=== PATIENT | female | born 1950 | race Caucasian/White ===

== ENCOUNTER 2017-08-16 04:45 | Emergency (ER) | payer MEDICARE, OTHER ==
[~2017-08-16] VITALS: Ht 172.7 cm; Wt 88.5 kg
[~2017-08-16 04:45] MED LIST: CARB200 PO; CIPR500 PO; CYCL10; CYCL10 PO; DOCU100 PO; ERGO50000 PO; ESOM20 PO; ESTR1; FAMO20; GABA300 PO; HYDMOR2 PO; HYOS.125 PO; KETO10 PO; LAMOTRIGINE300 MG PO; LEVSOD75 PO; METH10 PO; METO10; METO10 PO; MORP15ER PO; MULVITA PO; OXYC20L PO; OXYC5 PO; OXYC80ER; OXYCODONE 20 MG; PHENA200 PO; POLY17UD PO; PROM25 PO; RXPHEN200 PO; RXPROM25S PR; SENN187 PO; SUCR1 PO; TESTOSTERONE 2%; Tizanidine HCl2 MG; Valium5 MG PO
[2017-08-16] MEDS ORDERED: ESOM20 PO (06:04)
[2017-08-16] MEDS ORDERED: GABA400 PO (06:05)
[2017-08-16] MEDS ORDERED: TIROSINT100 MCG PO (06:06)
[2017-08-16] MEDS ORDERED: TEMA15 PO (06:07)
== END 2017-08-16 06:48 | disposition home or self-care (01) ==
LOC: ER 04:45
DX: S52.611A Displaced fracture of right ulna styloid process, initial encounter for closed fracture (principal); W17.89XA Other fall from one level to another, initial encounter; Z88.8 Allergy status to other drugs, medicaments and biological substances; Z79.899 Other long term (current) drug therapy; Z79.891 Long term (current) use of opiate analgesic
CPT/HCPCS: 29105; 73110; 96372; 99283; J1885

== ENCOUNTER 2017-11-18 06:21 | Emergency (ER) | payer MEDICARE, OTHER ==
[~2017-11-18] VITALS: Ht 172.7 cm; Wt 92.5 kg
[~2017-11-18 06:21] MED LIST changes: +GABA400 PO; +TEMA15 PO; +TIROSINT100 MCG PO
[2017-11-18 08:11] LABS: BASOPHILS ABSOLUTE AUTO 0.04 K/mm3 (0.00-0.23); BASOPHILS PERCENT AUTO 0 % (0-2); EOSINOPHILS ABSOLUTE AUTO 0.15 K/mm3 (0.00-0.68); EOSINOPHILS PERCENT AUTO 2 % (0-6); Hematocrit 33.2 % (33.0-51.0); Hemoglobin 10.4 g/dL (11.5-16.0); IMMATURE GRAN ABSOLUTE AUTO 0.03 K/mm3 (0.00-0.10); IMMATURE GRAN PERCENT AUTO 0 % (0-1); LYMPHOCYTES ABSOLUTE AUTO 1.19 K/mm3 (0.84-5.20); LYMPHOCYTES PERCENT AUTO 12 % (21-46); MONOCYTES ABSOLUTE AUTO 0.72 K/mm3 (0.16-1.47); MONOCYTES PERCENT AUTO 8 % (4-13); Mean Corpuscular HGB Conc 31.3 g/dL (31.5-36.5); Mean Corpuscular Volume 90 fL (80-100); NEUTROPHILS ABSOLUTE AUTO 7.47 K/mm3 (1.96-9.15); NEUTROPHILS PERCENT AUTO 78 % (41-73); Platelet Count 237 K/mm3 (150-400); RDW Coefficient Variation 13.6 % (11.7-14.2); RDW Standard Deviation 44.9 fL (35.1-46.3); Red Blood Cell Count 3.71 M/mm3 (3.80-5.20)
[2017-11-18 08:27] LABS: International Normalized Ratio 1.04; Prothrombin Time Results 10.7 Sec (9.7-11.5)
[2017-11-18 08:30] LABS: Anion Gap 5 mmol/L (6-16); Blood Urea Nitrogen 21 mg/dL (8-24); CO2, Blood 30 mmol/L (21-32); Calcium, Blood 8.1 mg/dL (8.5-10.1); Chloride, Blood 108 mmol/L (98-108); Glomerular Filtration Rate >60 (60-); Glucose, Blood 114 mg/dL (70-99); Potassium, Blood 3.8 mmol/L (3.5-5.5); Sodium, Blood 143 mmol/L (136-145)
== END 2017-11-18 10:20 | disposition short-term general hospital (02) ==
LOC: ER 06:21
PROVIDERS: Emergency Medicine
DX: S82.141A Displaced bicondylar fracture of right tibia, initial encounter for closed fracture (principal); S82.64XA Nondisplaced fracture of lateral malleolus of right fibula, initial encounter for closed fracture; Z91.048 Other nonmedicinal substance allergy status; Z88.8 Allergy status to other drugs, medicaments and biological substances; Z79.899 Other long term (current) drug therapy; W01.0XXA Fall on same level from slipping, tripping and stumbling without subsequent striking against object, initial encounter
CPT/HCPCS: 29505; 73590; 73610; 73700; 76377; 80048; 85025; 85610; 93005; 93010; 96361; 96374; 96375; 96376; 99285; J1885; J2405; J3010; J7030

== ENCOUNTER → 2018-01-29 | Outpatient (CLI) | payer MEDICARE, OTHER ==
[2018-01-31 14:56] LABS: Stool Occult Bld Immuno 1 Negative (NEGATIVE)
== END | disposition home or self-care (01) ==
LOC: LAB EV 14:30
PROVIDERS: Internal Medicine
DX: D50.9 Iron deficiency anemia, unspecified (principal)
CPT/HCPCS: 82274

== ENCOUNTER → 2018-04-25 | Outpatient (CLI) | payer MEDICARE, OTHER ==
[2018-04-25 11:29] LABS: BASOPHILS ABSOLUTE AUTO 0.04 K/mm3 (0.00-0.23); BASOPHILS PERCENT AUTO 1 % (0-2); EOSINOPHILS ABSOLUTE AUTO 0.09 K/mm3 (0.00-0.68); EOSINOPHILS PERCENT AUTO 1 % (0-6); Hematocrit 37.3 % (33.0-51.0); Hemoglobin 11.2 g/dL (11.5-16.0); IMMATURE GRAN ABSOLUTE AUTO 0.02 K/mm3 (0.00-0.10); IMMATURE GRAN PERCENT AUTO 0 % (0-1); LYMPHOCYTES ABSOLUTE AUTO 1.43 K/mm3 (0.84-5.20); LYMPHOCYTES PERCENT AUTO 22 % (21-46); MONOCYTES ABSOLUTE AUTO 0.39 K/mm3 (0.16-1.47); MONOCYTES PERCENT AUTO 6 % (4-13); Mean Corpuscular Volume 80 fL (80-100); Mean Platelet Volume 9.4 fL (9.1-12.4); NEUTROPHILS ABSOLUTE AUTO 4.53 K/mm3 (1.96-9.15); NEUTROPHILS PERCENT AUTO 70 % (41-73); Platelet Count 317 K/mm3 (150-400); RDW Coefficient Variation 19.4 % (11.7-14.2); RDW Standard Deviation 56.4 fL (35.1-46.3); Red Blood Cell Count 4.66 M/mm3 (3.80-5.20)
[2018-04-25 11:43] LABS: Alanine Aminotransfer (ALT/SGP 20 U/L (12-78); Albumin, Blood 3.4 g/dL (3.4-5.0); Albumin/Globulin Ratio 0.8 (0.8-1.8); Alk Phos 127 U/L (40-126); Anion Gap 9 mmol/L (6-16); Aspartate Aminotrans (AST/SGOT 15 U/L (12-37); Bilirubin, Total 0.2 mg/dL (0.1-1.0); Blood Urea Nitrogen 16 mg/dL (8-24); Bun/Creatinine Ratio 21.6 (12.0-20.0); CO2, Blood 28 mmol/L (21-32); Calcium, Blood 9.2 mg/dL (8.5-10.1); Chloride, Blood 102 mmol/L (98-108); Creatinine, Blood 0.74 mg/dL (0.40-1.00); Globulin, Blood 4.3 g/dL (2.2-4.0); Glomerular Filtration Rate >60 (60-); Glucose, Blood 108 mg/dL (70-99); Potassium, Blood 4.4 mmol/L (3.5-5.5); Sodium, Blood 139 mmol/L (136-145); Total Protein, Blood 7.7 g/dL (6.4-8.2)
== END | disposition home or self-care (01) ==
LOC: LAB EV 11:26 → LAB SHORT 11:26
PROVIDERS: General Practice
DX: M79.604 Pain in right leg (principal)
CPT/HCPCS: 80053; 85025

== ENCOUNTER → 2019-01-23 | Outpatient (CLI) | payer MEDICARE, OTHER ==
[2019-01-23 12:29] LABS: Source, Urine Clean Catch
[2019-01-23 13:53] LABS: Bilirubin, Urine Neg (Neg); Blood, Urine Neg (Neg); Glucose Qualitative, Urine Neg (Neg); Ketones, Urine Neg (Neg); Leukocyte Esterase, Urine 2+ (Neg); Nitrite, Urine Neg (Neg); Protein, Urine Neg (Neg); Urobilinogen, Urine NORM (Normal)
[2019-01-23 14:25] LABS: Appearance, Urine Clear (Clear); Color, Urine Yellow (P-Yellow)
[2019-01-23 14:27] LABS: Red Blood Cells, Urine 0-2 /hpf (0-2); Squamous Epithelial Cells Few /hpf (Few)
[2019-01-23 14:28] LABS: Bacteria Few /hpf
== END | disposition home or self-care (01) ==
LOC: LAB 12:27 → LAB SHORT 12:27 → LAB FUT 01-22 13:45
PROVIDERS: Urology
DX: N39.0 Urinary tract infection, site not specified (principal)
CPT/HCPCS: 81001; 87077; 87086; 87186

== ENCOUNTER → 2019-03-06 | Outpatient (CLI) | payer MEDICARE, OTHER ==
[2019-03-06 11:48] LABS: Source, Urine Clean Catch
[2019-03-06 15:45] LABS: Blood, Urine 1+ (Neg); Glucose Qualitative, Urine Neg (Neg); Ketones, Urine Neg (Neg); Leukocyte Esterase, Urine Neg (Neg); Nitrite, Urine Pos (Neg); Protein, Urine Neg (Neg); Specific Gravity, Urine 1.015 (1.003-1.022); Urobilinogen, Urine 2+ (Normal)
[2019-03-06 16:04] LABS: Appearance, Urine Hazy (Clear); Bilirubin, Urine 2+ (Neg); Color, Urine Amber (P-Yellow)
[2019-03-06 16:06] LABS: Bacteria Many /hpf; Red Blood Cells, Urine 0-2 /hpf (0-2); Squamous Epithelial Cells Few /hpf (Few); White Blood Cells, Urine 0-2 /hpf (0-5)
[2019-03-06 16:07] LABS: Calcium Oxalate Crystals Rare /hpf
== END | disposition home or self-care (01) ==
LOC: LAB 11:44 → LAB SHORT 11:44 → LAB FUT 03-06 10:45
PROVIDERS: Physician Assistant Medical
DX: N39.0 Urinary tract infection, site not specified (principal)
CPT/HCPCS: 81001; 87077; 87086; 87186

== ENCOUNTER → 2019-03-21 | Outpatient (CLI) | payer MEDICARE, OTHER ==
[2019-03-21 07:45] LABS: Source, Urine Clean Catch
[2019-03-21 10:20] LABS: Appearance, Urine Clear (Clear); Bilirubin, Urine Neg (Neg); Blood, Urine Neg (Neg); Color, Urine Yellow (P-Yellow); Glucose Qualitative, Urine Neg (Neg); Ketones, Urine Neg (Neg); Leukocyte Esterase, Urine Neg (Neg); Nitrite, Urine Neg (Neg); Protein, Urine Neg (Neg); Urobilinogen, Urine NORM (Normal)
== END | disposition home or self-care (01) ==
LOC: LAB SHORT 07:44 → LAB 07:44 → LAB FUT 03-20 18:00 → EDSTATUS 03-20 18:00
PROVIDERS: Physician Assistant
DX: R35.0 Frequency of micturition (principal)
CPT/HCPCS: 81003; 87086

== ENCOUNTER 2019-04-25 19:16 | Emergency (ER) | payer MEDICARE, OTHER ==
[~2019-04-25] VITALS: Ht 172.7 cm; Wt 90.7 kg
[2019-04-25] MEDS ORDERED: MS Contin15 MG PO (20:33)
== END 2019-04-25 21:04 | disposition home or self-care (01) ==
LOC: ER 19:16
DX: R34 Anuria and oliguria (principal); K21.9 Gastro-esophageal reflux disease without esophagitis; Z91.048 Other nonmedicinal substance allergy status; Z88.7 Allergy status to serum and vaccine; Z88.8 Allergy status to other drugs, medicaments and biological substances; Z79.899 Other long term (current) drug therapy; Z87.442 Personal history of urinary calculi
CPT/HCPCS: 51798; 99282-25

== ENCOUNTER → 2019-12-01 | Outpatient (CLI) | payer MEDICARE, OTHER ==
[~2019-12-01] MED LIST changes: +MS Contin15 MG PO
[2019-12-01 10:27] LABS: BASOPHILS ABSOLUTE AUTO 0.03 K/mm3 (0.00-0.23); BASOPHILS PERCENT AUTO 1 % (0-2); EOSINOPHILS ABSOLUTE AUTO 0.06 K/mm3 (0.00-0.68); EOSINOPHILS PERCENT AUTO 1 % (0-6); Hematocrit 37.9 % (33.0-51.0); Hemoglobin 12.3 g/dL (11.5-16.0); IMMATURE GRAN ABSOLUTE AUTO 0.02 K/mm3 (0.00-0.10); IMMATURE GRAN PERCENT AUTO 0 % (0-1); LYMPHOCYTES ABSOLUTE AUTO 1.14 K/mm3 (0.84-5.20); LYMPHOCYTES PERCENT AUTO 20 % (21-46); MONOCYTES ABSOLUTE AUTO 0.39 K/mm3 (0.16-1.47); MONOCYTES PERCENT AUTO 7 % (4-13); Mean Corpuscular HGB Conc 32.5 g/dL (31.5-36.5); Mean Corpuscular Volume 86 fL (80-100); Mean Platelet Volume 9.5 fL (9.1-12.4); NEUTROPHILS ABSOLUTE AUTO 4.14 K/mm3 (1.96-9.15); NEUTROPHILS PERCENT AUTO 72 % (41-73); Platelet Count 277 K/mm3 (150-400); RDW Coefficient Variation 13.8 % (11.7-14.2); RDW Standard Deviation 43.8 fL (35.1-46.3); White Blood Cell Count 5.78 K/mm3 (4.00-11.30)
[2019-12-01 10:39] LABS: Alanine Aminotransfer (ALT/SGP 291 U/L (12-78); Albumin, Blood 3.8 g/dL (3.4-5.0); Alk Phos 270 U/L (40-126); Anion Gap 6 mmol/L (6-16); Aspartate Aminotrans (AST/SGOT 241 U/L (12-37); Bilirubin, Total 0.4 mg/dL (0.1-1.0); Blood Urea Nitrogen 14 mg/dL (8-24); Bun/Creatinine Ratio 17.7 (12.0-20.0); CO2, Blood 29 mmol/L (21-32); Chloride, Blood 99 mmol/L (98-108); Creatinine, Blood 0.79 mg/dL (0.40-1.00); Globulin, Blood 3.9 g/dL (2.2-4.0); Glomerular Filtration Rate >60 (60-); Glucose, Blood 105 mg/dL (70-99); Potassium, Blood 4.1 mmol/L (3.5-5.5); Sodium, Blood 134 mmol/L (136-145); Total Protein, Blood 7.7 g/dL (6.4-8.2)
[2019-12-01 10:41] LABS: Troponin I <0.017 ng/mL (0.000-0.040)
== END | disposition home or self-care (01) ==
LOC: LAB SHORT 10:20 → LAB EV 10:20
PROVIDERS: Physician Assistant
DX: R07.9 Chest pain, unspecified (principal)
CPT/HCPCS: 80053; 83690; 84484; 85025

== ENCOUNTER 2020-02-27 17:32 | Emergency (ER) | payer MEDICARE, OTHER ==
[~2020-02-27] VITALS: Ht 172.7 cm; Wt 90.7 kg
[2020-02-27] MEDS ORDERED: TRILEPTAL300 M2 PO (17:55)
[2020-02-27] MEDS ORDERED: Vitamin D2000 UNIT PO (17:56)
[2020-02-27] MEDS ORDERED: Norco 5-325 Ta1 EACH PO (17:57)
== END 2020-02-27 18:58 | disposition home or self-care (01) ==
LOC: ER 17:32
DX: S52.502A Unspecified fracture of the lower end of left radius, initial encounter for closed fracture (principal); S52.612A Displaced fracture of left ulna styloid process, initial encounter for closed fracture; Z79.899 Other long term (current) drug therapy; Z91.09 Other allergy status, other than to drugs and biological substances; Z88.4 Allergy status to anesthetic agent; Z88.2 Allergy status to sulfonamides; W18.30XA Fall on same level, unspecified, initial encounter; Y93.01 Activity, walking, marching and hiking
CPT/HCPCS: 29125; 73110; 99283-25; A9270-GY

== ENCOUNTER → 2020-03-19 | Outpatient (CLI) | payer MEDICARE, OTHER ==
[~2020-03-19] MED LIST changes: +MIRALAX17 GM PO; +Norco 5-325 Ta1 EACH PO; +TRILEPTAL300 M2 PO; +Vitamin D2000 UNIT PO
[2020-03-19 08:30] LABS: Source, Urine Clean Catch
[2020-03-19 10:33] LABS: Appearance, Urine Clear (Clear); Bilirubin, Urine Neg (Neg); Blood, Urine Neg (Neg); Color, Urine Yellow (P-Yellow); Glucose Qualitative, Urine Neg (Neg); Ketones, Urine Neg (Neg); Leukocyte Esterase, Urine Neg (Neg); Nitrite, Urine Neg (Neg); Protein, Urine Neg (Neg); Urobilinogen, Urine NORM (Normal)
== END | disposition home or self-care (01) ==
LOC: PLD 08:05 → LAB SHORT 08:05
PROVIDERS: Urology
DX: N39.0 Urinary tract infection, site not specified (principal)
CPT/HCPCS: 81003; 87077; 87086; 87186

== ENCOUNTER 2020-03-23 06:00 | Day surgery (SDC) | payer MEDICARE, OTHER ==
[~2020-03-23] VITALS: Ht 172.7 cm; Wt 94.7 kg
--- NOTE | 2020-03-23 06:43 | NUR ---
PT ADMITTED TO [facility]. AGREES WITH PLANNED SURGERY. LEFT WRIST IN CAST FROM PRIOR SURGERY. DENIES PAIN TO LEFT ARM.
--- NOTE | 2020-03-23 07:16 | NUR ---
DR. LANDRY IN TO REMOVE CAST
--- NOTE | 2020-03-23 08:53 | NUR ---
Patient up to Ambulate independently. Gait steady. Discharge instructions reviewed with patient. Patient verbalizes understanding. Copy given to patient to take home. Dressing to procedure site clean, dry, intact with no visible drainage, swelling, erythema or bruising noted. Circulation checks WNL'S. Some tingling sensation feeling noted by patient. Patient States Post-Procedure ride home has been arranged. Discharged via wheelchair to private car for ride home.
== END 2020-03-23 08:54 | disposition home or self-care (01) ==
LOC: ORSCMMR 06:00 → ORD 07:30 → ORSCMMR 08:54
PROVIDERS: Orthopaedic Surgery
PROC: 01N50ZZ Release Median Nerve, Open Approach (ICD-10-PCS; principal; 2020-03-23 07:30)
DX: G56.02 Carpal tunnel syndrome, left upper limb (principal); E66.9 Obesity, unspecified; E03.9 Hypothyroidism, unspecified; Z68.31 Body mass index [BMI] 31.0-31.9, adult; K21.9 Gastro-esophageal reflux disease without esophagitis; Z79.899 Other long term (current) drug therapy
CPT/HCPCS: 73100; J0690; J2250; J2704; J3010; J7120

== ENCOUNTER → 2020-04-07 | Outpatient (CLI) | payer MEDICARE, OTHER ==
[2020-04-07 13:56] LABS: Source, Urine Clean Catch
[2020-04-07 17:11] LABS: Appearance, Urine Hazy (Clear); Bilirubin, Urine Neg (Neg); Blood, Urine Neg (Neg); Color, Urine Yellow (P-Yellow); Glucose Qualitative, Urine Neg (Neg); Ketones, Urine Neg (Neg); Leukocyte Esterase, Urine Neg (Neg); Nitrite, Urine Neg (Neg); Protein, Urine Neg (Neg); Urobilinogen, Urine NORM (Normal)
[2020-04-07 17:30] LABS: Calcium Oxalate Crystals Many /hpf; Squamous Epithelial Cells Many /hpf (Few)
[2020-04-07 17:34] LABS: Bacteria Rare /hpf; Red Blood Cells, Urine 0-2 /hpf (0-2); White Blood Cells, Urine 0-2 /hpf (0-5)
== END | disposition home or self-care (01) ==
LOC: LAB 13:37 → LAB SHORT 13:37 → EDSTATUS 17:21
PROVIDERS: Nurse Practitioner
DX: N39.0 Urinary tract infection, site not specified (principal); R39.15 Urgency of urination; R35.0 Frequency of micturition
CPT/HCPCS: 81001

== ENCOUNTER → 2020-04-18 | Outpatient (CLI) | payer MEDICARE, OTHER ==
[2020-04-20 14:30] LABS: CORONAVIRUS (COVID19) CSH-NRL Positive (Negative)
== END ==
LOC: LAB SHORT 15:05
PROVIDERS: Physician Assistant
DX: U07.1 COVID-19 (principal)
CPT/HCPCS: U0003

== ENCOUNTER → 2020-05-28 | Outpatient (CLI) | payer MEDICARE, OTHER ==
[~2020-05-28] MED LIST changes: +TIZA4 PO
[2020-05-28 10:00] LABS: Source, Urine Clean Catch
[2020-05-28 11:21] LABS: Appearance, Urine Hazy (Clear); Bilirubin, Urine Neg (Neg); Blood, Urine 1+ (Neg); Color, Urine Yellow (P-Yellow); Glucose Qualitative, Urine Neg (Neg); Ketones, Urine Neg (Neg); Leukocyte Esterase, Urine 1+ (Neg); Nitrite, Urine Neg (Neg); Protein, Urine Neg (Neg); Urobilinogen, Urine NORM (Normal); pH, Urine 6.5 (5.0-8.0)
[2020-05-28 11:46] LABS: Bacteria Many /hpf; Calcium Oxalate Crystals Many /hpf; Mucus Light (0-Heavy); Red Blood Cells, Urine 0-2 /hpf (0-2); Squamous Epithelial Cells Mod /hpf (Few); Transitional Epithelial Cells Few /hpf (0-Rare)
== END ==
LOC: LAB SHORT 09:57 → LAB 09:57
PROVIDERS: Urology
DX: N39.0 Urinary tract infection, site not specified (principal)
CPT/HCPCS: 81001; 87077; 87086; 87186

== ENCOUNTER 2020-09-15 14:01 | Emergency (ER) | payer MEDICARE, OTHER ==
[~2020-09-15] VITALS: Ht 172.7 cm; Wt 88.5 kg
[~2020-09-15 14:01] MED LIST changes: -TIZA4 PO
[2020-09-15 14:46] LABS: BASOPHILS ABSOLUTE AUTO 0.04 K/mm3 (0.00-0.23); BASOPHILS PERCENT AUTO 1 % (0-2); EOSINOPHILS ABSOLUTE AUTO 0.05 K/mm3 (0.00-0.68); EOSINOPHILS PERCENT AUTO 1 % (0-6); Hemoglobin 12.3 g/dL (11.5-16.0); IMMATURE GRAN ABSOLUTE AUTO 0.03 K/mm3 (0.00-0.10); IMMATURE GRAN PERCENT AUTO 0 % (0-1); LYMPHOCYTES ABSOLUTE AUTO 1.33 K/mm3 (0.84-5.20); LYMPHOCYTES PERCENT AUTO 19 % (21-46); MONOCYTES ABSOLUTE AUTO 0.37 K/mm3 (0.16-1.47); MONOCYTES PERCENT AUTO 5 % (4-13); Mean Corpuscular HGB 28.1 pg (26.0-34.0); Mean Corpuscular HGB Conc 33.2 g/dL (31.5-36.5); Mean Corpuscular Volume 85 fL (80-100); Mean Platelet Volume 9.4 fL (9.1-12.4); NEUTROPHILS ABSOLUTE AUTO 5.28 K/mm3 (1.96-9.15); NEUTROPHILS PERCENT AUTO 74 % (41-73); Platelet Count 293 K/mm3 (150-400); RDW Coefficient Variation 13.6 % (11.7-14.2); RDW Standard Deviation 42.2 fL (35.1-46.3); Red Blood Cell Count 4.37 M/mm3 (3.80-5.20)
[2020-09-15 15:08] LABS: Alanine Aminotransfer (ALT/SGP 48 U/L (12-78); Albumin, Blood 3.6 g/dL (3.4-5.0); Albumin/Globulin Ratio 0.9 (0.8-1.8); Alk Phos 150 U/L (50-136); Anion Gap 6 mmol/L (6-16); Aspartate Aminotrans (AST/SGOT 82 U/L (12-37); Bilirubin, Total 0.4 mg/dL (0.1-1.0); Blood Urea Nitrogen 10 mg/dL (8-24); Bun/Creatinine Ratio 14.2 (12.0-20.0); CO2, Blood 26 mmol/L (21-32); Calcium, Blood 8.9 mg/dL (8.5-10.1); Chloride, Blood 98 mmol/L (98-108); Globulin, Blood 3.8 g/dL (2.2-4.0); Glomerular Filtration Rate >60 (60-); Glucose, Blood 140 mg/dL (70-99); Potassium, Blood 3.8 mmol/L (3.5-5.5); Sodium, Blood 130 mmol/L (136-145); Total Protein, Blood 7.4 g/dL (6.4-8.2); Troponin I <0.015 ng/mL (0.000-0.040)
[2020-09-15 16:52] LABS: Source, Urine Clean Catch
[2020-09-15 17:00] LABS: Appearance, Urine Clear (Clear); Bilirubin, Urine Neg (Neg); Blood, Urine Neg (Neg); Color, Urine Yellow (P-Yellow); Glucose Qualitative, Urine Neg (Neg); Ketones, Urine Neg (Neg); Leukocyte Esterase, Urine Neg (Neg); Nitrite, Urine Neg (Neg); Protein, Urine Neg (Neg); Urobilinogen, Urine NORM (Normal)
[2020-09-15] MEDS ORDERED: TIZA4 PO (17:46)
== END 2020-09-15 17:50 | disposition home or self-care (01) ==
LOC: ER 14:01
PROVIDERS: Physician Assistant
DX: R07.9 Chest pain, unspecified (principal); K21.9 Gastro-esophageal reflux disease without esophagitis; Z91.09 Other allergy status, other than to drugs and biological substances; Z88.2 Allergy status to sulfonamides; Z88.4 Allergy status to anesthetic agent; Z79.899 Other long term (current) drug therapy
CPT/HCPCS: 71046; 80053; 81003; 83690; 84484; 85025; 93005; 93010; 99285-25; A9270

== ENCOUNTER → 2020-10-06 | Outpatient (CLI) | payer MEDICARE, OTHER ==
[~2020-10-06] MED LIST changes: +TIZA4 PO
[2020-10-06 08:16] LABS: Source, Urine Clean Catch
[2020-10-06 08:45] LABS: Appearance, Urine Clear (Clear); Bilirubin, Urine Neg (Neg); Blood, Urine Neg (Neg); Color, Urine Yellow (P-Yellow); Glucose Qualitative, Urine Neg (Neg); Ketones, Urine Neg (Neg); Leukocyte Esterase, Urine 1+ (Neg); Nitrite, Urine Neg (Neg); Protein, Urine Neg (Neg); Specific Gravity, Urine 1.015 (1.003-1.022); Urobilinogen, Urine NORM (Normal); pH, Urine 6.5 (5.0-8.0)
[2020-10-06 09:05] LABS: Calcium Oxalate Crystals Few /hpf
[2020-10-06 09:06] LABS: Bacteria Few /hpf; Mucus Light (0-Heavy); Red Blood Cells, Urine Rare /hpf (0-2); Squamous Epithelial Cells Few /hpf (Few)
== END | disposition home or self-care (01) ==
LOC: LAB SHORT 08:07 → LAB 08:07 → EDSTATUS 10-05 19:00 → LAB FUT 10-05 19:00
PROVIDERS: Physician Assistant
DX: N39.0 Urinary tract infection, site not specified (principal); R39.15 Urgency of urination
CPT/HCPCS: 81001; 87086

== ENCOUNTER → 2021-01-12 | Outpatient (CLI) | payer MEDICARE, OTHER | LOC: LAB SHORT 10:26 → LAB 10:26 | DX: N39.0 Urinary tract infection, site not specified (principal) | CPT/HCPCS: 87077; 87086; 87186 ==

== ENCOUNTER → 2021-01-23 | Outpatient (CLI) | payer MEDICARE, OTHER | END | disposition home or self-care (01) | LOC: LAB SHORT 11:59 → LAB 11:59 | DX: N39.0 Urinary tract infection, site not specified (principal) | CPT/HCPCS: 87086 ==

== ENCOUNTER → 2021-04-30 | Outpatient (CLI) | payer MEDICARE, OTHER | END | disposition home or self-care (01) | LOC: LAB SHORT 13:52 | DX: N39.0 Urinary tract infection, site not specified (principal) | CPT/HCPCS: 87077; 87086; 87186 ==

== ENCOUNTER 2024-02-13 17:33 | Emergency (ER) | payer MEDICARE, OTHER ==
[~2024-02-13] VITALS: Ht 172.7 cm; Wt 85.7 kg
[2024-02-13 17:40] VITALS: BP 129/68
[2024-02-13] MEDS ORDERED: Morphine Sulfate 4 MG/1 ML Injection IV ONE (18:25)
[2024-02-13] MEDS ORDERED: Diphth,Pertuss(Acell),Tet Vac 0.5 ML VIAL IM ONE (18:25)
[2024-02-13 19:35] LABS: BASOPHILS ABSOLUTE AUTO 0.07 K/mm3 (0.00-0.23); BASOPHILS PERCENT AUTO 1 % (0-2); EOSINOPHILS ABSOLUTE AUTO 0.05 K/mm3 (0.00-0.68); EOSINOPHILS PERCENT AUTO 0 % (0-6); Hematocrit 34.3 % (33.0-51.0); Hemoglobin 11.5 g/dL (11.5-16.0); IMMATURE GRAN ABSOLUTE AUTO 0.06 K/mm3 (0.00-0.10); IMMATURE GRAN PERCENT AUTO 0 % (0-1); LYMPHOCYTES ABSOLUTE AUTO 1.06 K/mm3 (0.84-5.20); LYMPHOCYTES PERCENT AUTO 7 % (21-46); MONOCYTES ABSOLUTE AUTO 0.76 K/mm3 (0.16-1.47); MONOCYTES PERCENT AUTO 5 % (4-13); Mean Corpuscular HGB 29.3 pg (26.0-34.0); Mean Corpuscular HGB Conc 33.5 g/dL (31.5-36.5); Mean Corpuscular Volume 88 fL (80-100); Mean Platelet Volume 9.4 fL (9.1-12.4); NEUTROPHILS ABSOLUTE AUTO 12.26 K/mm3 (1.96-9.15); NEUTROPHILS PERCENT AUTO 86 % (41-73); Platelet Count 307 K/mm3 (150-400); RDW Coefficient Variation 14.2 % (11.7-14.2); Red Blood Cell Count 3.92 M/mm3 (3.80-5.20); White Blood Cell Count 14.26 K/mm3 (4.00-11.30)
[2024-02-13 19:49] LABS: Prothrombin Time Results 10.7 Sec (9.7-11.5)
[2024-02-13 19:56] LABS: Albumin, Blood 3.9 g/dL (3.4-5.0); Albumin/Globulin Ratio 1.1 (0.8-1.8); Bilirubin, Total 0.3 mg/dL (0.1-1.0); Bun/Creatinine Ratio 17.3 (12.0-20.0); Calcium, Blood 9.3 mg/dL (8.5-10.1); Creatinine, Blood 0.81 mg/dL (0.40-1.00); Globulin, Blood 3.7 g/dL (2.2-4.0); Potassium, Blood 3.9 mmol/L (3.5-5.5); Total Protein, Blood 7.6 g/dL (6.4-8.2)
[2024-02-13] MEDS ORDERED: RX Prepack 6 Tabs Oxycodone 5mg UD ONE (20:45)
== END 2024-02-13 20:57 | disposition home or self-care (01) ==
LOC: ER 17:33
PROVIDERS: Student in an Organized Health Care Education/Training Program
DX: S42.201A Unspecified fracture of upper end of right humerus, initial encounter for closed fracture (principal); S51.011A Laceration without foreign body of right elbow, initial encounter; R52 Pain, unspecified; K21.9 Gastro-esophageal reflux disease without esophagitis; E03.9 Hypothyroidism, unspecified; W10.9XXA Fall (on) (from) unspecified stairs and steps, initial encounter; Z79.899 Other long term (current) drug therapy; Z91.048 Other nonmedicinal substance allergy status; Z88.1 Allergy status to other antibiotic agents; Z88.8 Allergy status to other drugs, medicaments and biological substances
CPT/HCPCS: 12002; 71045; 73060; 73080; 73130; 80053; 85025; 85610; 85730; 86850; 86900; 86901; 90471; 90715; 96374-59; 99284-25; A9270; J2270

== ENCOUNTER 2024-02-17 12:26 | Inpatient (IN) | payer OTHER, MEDICARE ==
[~2024-02-17] VITALS: Ht 172.7 cm; Wt 89.8 kg
[2024-02-17] MEDS ORDERED: Ondansetron HCl 2 MG / ML 2ML Vial IV ONE (15:25)
[2024-02-17] MEDS ORDERED: NS 1,000 ML IV SCH (15:25)
[2024-02-17] MEDS ORDERED: HYDROmorphone HCl/Pf 1MG SYR IV ONE (15:25)
[2024-02-17 15:35] LABS: BASOPHILS ABSOLUTE AUTO 0.04 K/mm3 (0.00-0.23); BASOPHILS PERCENT AUTO 0 % (0-2); EOSINOPHILS ABSOLUTE AUTO 0.07 K/mm3 (0.00-0.68); EOSINOPHILS PERCENT AUTO 1 % (0-6); Hematocrit 31.8 % (33.0-51.0); Hemoglobin 10.3 g/dL (11.5-16.0); IMMATURE GRAN ABSOLUTE AUTO 0.04 K/mm3 (0.00-0.10); IMMATURE GRAN PERCENT AUTO 0 % (0-1); LYMPHOCYTES ABSOLUTE AUTO 0.95 K/mm3 (0.84-5.20); LYMPHOCYTES PERCENT AUTO 10 % (21-46); MONOCYTES ABSOLUTE AUTO 0.84 K/mm3 (0.16-1.47); MONOCYTES PERCENT AUTO 9 % (4-13); Mean Corpuscular HGB 28.5 pg (26.0-34.0); Mean Corpuscular HGB Conc 32.4 g/dL (31.5-36.5); Mean Corpuscular Volume 88 fL (80-100); NEUTROPHILS PERCENT AUTO 80 % (41-73); Platelet Count 307 K/mm3 (150-400); RDW Coefficient Variation 14.2 % (11.7-14.2); RDW Standard Deviation 46.4 fL (35.1-46.3); Red Blood Cell Count 3.62 M/mm3 (3.80-5.20); White Blood Cell Count 9.94 K/mm3 (4.00-11.30)
[2024-02-17] MEDS ORDERED: CeFAZolin Sodium 1,000 MG in NS 50 ML IV ONE (15:35)
[2024-02-17 15:55] LABS: Albumin, Blood 3.4 g/dL (3.4-5.0); Albumin/Globulin Ratio 0.8 (0.8-1.8); Bilirubin, Total 0.5 mg/dL (0.1-1.0); Bun/Creatinine Ratio 20.3 (12.0-20.0); Creatinine, Blood 0.74 mg/dL (0.40-1.00); Globulin, Blood 4.2 g/dL (2.2-4.0); Potassium, Blood 4.3 mmol/L (3.5-5.5); Total Protein, Blood 7.6 g/dL (6.4-8.2)
[2024-02-17] MEDS ORDERED: HYDROmorphone HCl/Pf 1MG SYR IV PRN ×2 (16:30→21:30)
[2024-02-17] MEDS ORDERED: Ondansetron HCl 2 MG / ML 2ML Vial IV PRN (16:30)
[2024-02-17] MEDS ORDERED: FLU VACC TS2024-25(6MOS UP)/PF 45 MCG/0.5 ML SYRINGE IM SCH (16:30)
[2024-02-17] MEDS ORDERED: Acetaminophen 325 MG TABLET PO PRN (16:30)
[2024-02-17] MEDS ORDERED: CeFAZolin Sodium 1,000 MG in NS 50 ML IV SCH (18:00)
[2024-02-17] MEDS ORDERED: LOSA50 PO (18:08)
[2024-02-17] MEDS ORDERED: METO25ER PO (18:09)
[2024-02-17] MEDS ORDERED: AMLO5 PO (18:10)
[2024-02-17] MEDS ORDERED: NS 250 ML IV PRN (18:30)
--- NOTE | 2024-02-17 18:43 | NUR ---
ADMISSION NOTE: PATIENT ARRIVES TO ROOM VIA BED AT 1750 FROM ER FOR DX'S OF CELLULITIS OF R UPPER EXTREMITY. PATIENT TRANSFERRED TO BED c SBA. ADMISSION, MEDRIC AND SKIN ASSESSMENT c 2 RN'S VERIFIED COMPLETED. PATIENT HAS SWELLING TO R SHOULDER UP TO FINGER, AND STITCHES TO R ELBOW c MINIMAL SEROSANGUINEOUS DRAINAIGE. PATIENT MEDICATED FOR PAIN TO R ARM c IV PRN PAIN MEDS. PATIENT A/OX4, ANSWER TO QUESTIONS APPROPRIATELY AND ABLE TO MAKE NEEDS KNOWN. PATIENT ON TELE, SR HR IN THE 90'S BPM. PATIENT ON HEART HEALTHY DIET, CONTINENT OF BLADDER, AMBULATES TO BATHROOM c SBA. PIV TO LAC SL. PATIENT ORIENTATED TO ROOM AND CALL SYSTEM. SPOUSE AT BEDSIDE. CALL LIGHT IN REACH.
--- NOTE | 2024-02-17 19:16 | NUR ---
ADDITIONAL NOTE: PER ELECTRICAL PROSPECTING OBSERVERNOHELIA "ANCEF WAS GIVEN IN ED AND INFUSION COMPLETED AT 1615." PATIENT ANCEF SCHEDULED TO BE GIVEN AT 1800, NOTIFIED PHARMACISTNAKITA REGARDING THIS CONCERNED. PER NAKITA TO GIVE THE ANCEF DOSE AT [phone]. NOC RNCLAUDETTE NOTIFIED.
[2024-02-17 20:57] VITALS: BP 126/59
[2024-02-17] MEDS ORDERED: Lactobacil 2-S.Thermo-Bifido 1 1 Cap PO SCH (21:00)
[2024-02-17] MEDS ORDERED: LamoTRIgine 100 MG Tab PO SCH (21:00)
[2024-02-17] MEDS ORDERED: OXcarbazepine 150 MG Tab PO SCH (21:00)
--- NOTE | 2024-02-18 04:25 | NUR ---
SUMMARY: PT A/OX4, CALLS APPROPRIATELY TO SPECIFY NEEDS AND IS PLEASANT AND COOPERATIVE W/CARE. SHE'S SBA TO TOILET D/T LIMITED ROM OF R.ARM R/T RECENT FX'D HUMEROUS AND NEW ONSET CELLULITIS. SWELLING OBSERVED FROM SHOULDER DOWN TO FINGERS W/SEROSANGUINOUS DRAINAGE OBSERVED FROM R.ELBOW LAC SITE CLOSED RECENTLY W/SUTURES. DIFFUSE BRUISING NOTED T/O ARM AND IV ABX RECEIVED PER EMAR. DILAUDID 1MG IV Q2H PRN PROVIDED FOR TOLERABLE RELIEF OF ASSOCIATED PAIN AND ICE PACK REMAINS IN PLACE FOR ADDITIONAL RELIEF. SHE'S BEEN NPO SINCE PR FOR PROBABLE SURGICAL INTERVENTION THIS AM. SHE'S NSR ON TELE AT 80'S BPM. NO ACUTE CHANGES, VSS/AFEBRILE. WCTM AND REPORT TO DAY RN.
[2024-02-18 04:46] VITALS: BP 138/74
[2024-02-18 05:07] LABS: BASOPHILS ABSOLUTE AUTO 0.05 K/mm3 (0.00-0.23); BASOPHILS PERCENT AUTO 1 % (0-2); EOSINOPHILS ABSOLUTE AUTO 0.12 K/mm3 (0.00-0.68); EOSINOPHILS PERCENT AUTO 2 % (0-6); Hematocrit 26.8 % (33.0-51.0); Hemoglobin 8.7 g/dL (11.5-16.0); IMMATURE GRAN ABSOLUTE AUTO 0.02 K/mm3 (0.00-0.10); IMMATURE GRAN PERCENT AUTO 0 % (0-1); LYMPHOCYTES PERCENT AUTO 14 % (21-46); MONOCYTES ABSOLUTE AUTO 0.77 K/mm3 (0.16-1.47); MONOCYTES PERCENT AUTO 12 % (4-13); Mean Corpuscular HGB 28.7 pg (26.0-34.0); Mean Corpuscular HGB Conc 32.5 g/dL (31.5-36.5); Mean Corpuscular Volume 88 fL (80-100); Mean Platelet Volume 9.3 fL (9.1-12.4); NEUTROPHILS ABSOLUTE AUTO 4.77 K/mm3 (1.96-9.15); NEUTROPHILS PERCENT AUTO 72 % (41-73); Platelet Count 276 K/mm3 (150-400); RDW Coefficient Variation 14.2 % (11.7-14.2); RDW Standard Deviation 46.1 fL (35.1-46.3); Red Blood Cell Count 3.03 M/mm3 (3.80-5.20); White Blood Cell Count 6.63 K/mm3 (4.00-11.30)
[2024-02-18 05:27] LABS: Bun/Creatinine Ratio 15.9 (12.0-20.0); Calcium, Blood 8.2 mg/dL (8.5-10.1); Creatinine, Blood 0.69 mg/dL (0.40-1.00); Potassium, Blood 4.4 mmol/L (3.5-5.5)
[2024-02-18] MEDS ORDERED: CeFAZolin Sodium 1,000 MG in NS 50 ML IV ONE (08:10)
[2024-02-18 08:17] VITALS: BP 137/75
[2024-02-18] MEDS ORDERED: Sodium Chloride 1 GM TAB PO SCH (09:00)
[2024-02-18] MEDS ORDERED: Losartan Potassium 50 MG Tab PO SCH (09:00)
[2024-02-18] MEDS ORDERED: SODCHL1 PO (10:42)
[2024-02-18] MEDS ORDERED: CeFAZolin Sodium 1,000 MG in NS 50 ML IV SCH (13:00)
[2024-02-18] MEDS ORDERED: TiZANidine HCl 4 MG Tab PO PRN (13:45)
[2024-02-18] MEDS ORDERED: Polyethylene Glycol 3350 17 gm PO SCH (13:50)
[2024-02-18 16:21] VITALS: BP 134/71
--- NOTE | 2024-02-18 20:00 | NUR ---
SHIFT SUMMARY PT SEEN BY ORTHO TODAY. PLAN TO BE NPO AT MIDNIGHT FOR I&D TOMORROW WITH POSSIBLE WOUND VAC PLACEMENT. PT VERY PAINFUL TODAY. SLING APPLIED TO R ARM & ABD PAD PLACED R ELBOW DRAINAGE. NO OTHER ACUTE CHANGES IN ASSESSMENT AT THIS TIME. VS REIVEWED. CALL LIGHT IN REACH. SEE EMAR FOR PAIN OCCUPATIONAL THERAPY SUPERVISOR. PT REMINDED TO CALL STAFF IF HER PAIN LEVEL IS RISING. PT STATES SHE UNDERSTANDS AND WILL DO SO.
[2024-02-19] VITALS (17 sets, daily range): BP systolic 121–162; BP diastolic 55–91
--- NOTE | 2024-02-19 05:56 | NUR ---
SUMMARY: PT A/OX4, CALLS APPROPRIATELY TO SPECIFY NEEDS AND IS PLEASANT AND COOPERATIVE W/CARE. R.ARM REMAINS BRUISED AND EDEMATOUS FROM SHOULDER TO FINGERS R/T FX'D HUMERUS AND INFECTED ELBOW LACERATION W/SUTURES. SMALL AMT.OF SEROSANGUINOUS DRAINAGE PERSISTS FROM SITE AND ABD PAD W/SLING REMAINS IN PLACE. 1MG IV DILAUDID WAS RECEIVED APPROX Q2H PRN FOR TOLERABLE RELIEF OF ASSOCIATED PAIN AND ICE PACKS ARE IN PLACE. SHE BECAME TEARFUL THIS AM D/T PAIN AND ANXIETY RE: SURGERY HIGH BUT CALMED W/REASSURANCE AND PAIN MEDS. SHE'S BEEN NPO SINCE [place] FOR I&D W/PLANNED WOUND VAC PLACMENT AND IV ABX WERE PROVIDED PER EMAR. NO ACUTE CHANGES, VSS/AFEBRILE. WCTM AND REPORT TO DAY RN.
[2024-02-19] MEDS ORDERED: Levothyroxine Sodium 0.1 MG Tab PO SCH (06:00)
[2024-02-19] MEDS ORDERED: Pantoprazole Sodium 40 MG Tab PO SCH (06:00)
[2024-02-19] MEDS ORDERED: Metoprolol Succinate 25 MG TABCR PO SCH (09:00)
[2024-02-19] MEDS ORDERED: Cholecalciferol 1000 Unit Tablet (=25MCG) PO SCH (09:00)
[2024-02-19] MEDS ORDERED: AmLODIPine Besylate 5 MG Tab PO SCH (09:00)
[2024-02-19] MEDS ORDERED: Lactated Ringer's 1,000 ML IV SCH (11:10)
--- NOTE | 2024-02-19 11:21 | NUR ---
PT TAKEN TO SURGERY AT THIS TIME A/OX4. PTS IS WITH THE PT.
[2024-02-19] MEDS ORDERED: propofoL 20 ML IV ONE (11:53)
[2024-02-19] MEDS ORDERED: FentaNYL Citrate 50 MCG/ML 2 ML Injection ONE (11:53)
[2024-02-19] MEDS ORDERED: Dilaudid 2 mg Ta2 MG PO (12:01)
[2024-02-19] MEDS ORDERED: HYDROmorphone HCl/Pf 1MG SYR ONE ×3 (12:06→13:51)
[2024-02-19] MEDS ORDERED: Bupivacaine 0.5% HCl 5 MG/ML 30MLVIAL ONE (12:37)
[2024-02-19] MEDS ORDERED: HYDROcodone 5-APAP 325 TAB PO PRN (12:40)
[2024-02-19] MEDS ORDERED: Ondansetron HCl 2 MG / ML 2ML Vial ONE ×2 (12:40→13:25)
[2024-02-19] MEDS ORDERED: HYDROmorphone HCl/Pf 1MG SYR IV PRN (12:40)
[2024-02-19] MEDS ORDERED: Dexamethasone Sod Phos 10 MG/ML 1ML VIAL ONE (12:40)
[2024-02-19] MEDS ORDERED: FLU VACC TS2024-25(6MOS UP)/PF 45 MCG/0.5 ML SYRINGE IM ONE (12:40)
[2024-02-19] MEDS ORDERED: Naloxone HCl 0.4MG / ML 1ML Vial IV PRN (12:45)
[2024-02-19] MEDS ORDERED: Ondansetron 4 MG TAB PO PRN (12:45)
[2024-02-19] MEDS ORDERED: DiphenhydrAMINE HCL 25 MG Cap PO PRN (12:45)
[2024-02-19] MEDS ORDERED: Bisacodyl 10 MG Supp PR PRN (12:45)
[2024-02-19] MEDS ORDERED: Ondansetron HCl 2 MG / ML 2ML Vial IV PRN (12:45)
[2024-02-19] MEDS ORDERED: Acetaminophen 325 MG TABLET PO PRN (12:45)
[2024-02-19] MEDS ORDERED: Metoclopramide HCl 10 MG Tab PO PRN (12:50)
[2024-02-19] MEDS ORDERED: Magnesium Hydroxide Conc 10 ML UDC PO PRN (12:50)
[2024-02-19] MEDS ORDERED: Ketorolac Tromethamine 30mg Vial ONE (13:03)
[2024-02-19] MEDS ORDERED: NS KCl 20mEq 1,000 ML IV SCH (14:00)
[2024-02-19] MEDS ORDERED: Naproxen 250 MG TAB PO PRN (14:10)
[2024-02-19] MEDS ORDERED: Ketorolac Tromethamine 30mg Vial IV PRN (14:10)
[2024-02-19] MEDS ORDERED: Vancomycin HCL 2,000 MG in NS 500 ML IV SCH (15:00)
--- NOTE | 2024-02-19 17:09 | NUR ---
Pt. is awak in bed when she welcomes my visit. Spouse is at bedside. Pt. and Spouse are both pleasant and known to this studio grip form the community. Facilitate a life review and a health update. Pt. displays evidence of being engaged and aware. Listen with wmpathy and interest. Consider matters of ladonna and belief as well as other community based ministry opportunities. Prayed with Pt. Both Pt. and spouse verbalize gratitude for the spiritual care visit.
--- NOTE | 2024-02-19 18:17 | NUR ---
SHIFT SUMMARY PATIENT MEDICATED X2 FOR ELBOW/SHOULDER PAIN TODAY. ONCE IN AM AND ONCE POST OP. DENIES NAUSEA AND SHORTNESS OF BREATH. I&D OF RIGHT SHOULDER WITH WOUND VAC PLACEMENT. DRAINING SMALL AMOUNT SEROSANGUINOUS FLUID. SLING IN PLACE. ICE TO ELBOW. UP SBA TO BR. AT BEDSIDE. TOLERATING REGULAR DIET. PLEASANT AND COOPERATIVE WITH CARE.
[2024-02-19] MEDS ORDERED: CeFAZolin Sodium 2,000 MG in NS 100 ML IV SCH (20:00)
[2024-02-19] MEDS ORDERED: Docusate Sodium 100 MG Cap PO SCH (21:00)
[2024-02-20 00:58] VITALS: BP 131/66
[2024-02-20] MEDS ORDERED: Vancomycin HCL 1,250 MG in NS 250 ML IV SCH (03:00)
--- NOTE | 2024-02-20 05:15 | NUR ---
SHIFT SUMMARY; PT ALERT ORIENTED X 4 ABLE TO VERBALIZE NEEDS. HAD A I&D DONE WITH WOUND VAC PLACED. SLING IS INTACT TO HER RT ARM SURGICAL SITE. ALSO HAS A FX TO HER RT PROXIMAL HUMERUS THAT IS NONSURGICAL. REMAINS NON WEIGHT BEARING TO THE RIGHT UPPER EXTREMITY. REMAINS ON TELEMETRY AT [facility] WITH A RATE OF 76. PT C/O RT ARM AND BACK PAIN. MEDICATED WITH DILAUDID X 1 WITH SOME PAIN RELIEF. SHE STATED THAT SHE TAKES 2MG OF DILAUDID AT HOME AND THE 1MG Q12HR DOESNT SEEM TO BE DOING GOOD. 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 SHE REQUIRES SBA TO GET UP AND AMBULATE TO THE BATHROOM. SHE IS CURRENTLY SLEEPING AT THIS TIME.
[2024-02-20 05:19] LABS: C-REACTIVE PROTEIN, EXT RANGE 4.24 mg/dL (0.000-0.300)
[2024-02-20 05:23] LABS: Calcium, Blood 8.4 mg/dL (8.5-10.1); Creatinine, Blood 0.65 mg/dL (0.40-1.00); Potassium, Blood 4.2 mmol/L (3.5-5.5)
[2024-02-20 05:30] VITALS: BP 150/70
--- NOTE | 2024-02-20 06:09 | NUR ---
LAB CALLED AND STATED THAT THEY GOT A SHORT SAMPLE ON THIS PT SO LAB WILL BE REDRAWN.
[2024-02-20 07:18] VITALS: BP 147/76
[2024-02-20 08:01] LABS: BASOPHILS ABSOLUTE AUTO 0.04 K/mm3 (0.00-0.23); BASOPHILS PERCENT AUTO 1 % (0-2); EOSINOPHILS ABSOLUTE AUTO 0.13 K/mm3 (0.00-0.68); EOSINOPHILS PERCENT AUTO 2 % (0-6); Hematocrit 29.7 % (33.0-51.0); Hemoglobin 9.5 g/dL (11.5-16.0); IMMATURE GRAN ABSOLUTE AUTO 0.04 K/mm3 (0.00-0.10); IMMATURE GRAN PERCENT AUTO 1 % (0-1); LYMPHOCYTES ABSOLUTE AUTO 1.19 K/mm3 (0.84-5.20); LYMPHOCYTES PERCENT AUTO 18 % (21-46); MONOCYTES ABSOLUTE AUTO 0.52 K/mm3 (0.16-1.47); MONOCYTES PERCENT AUTO 8 % (4-13); Mean Corpuscular HGB 28.5 pg (26.0-34.0); Mean Corpuscular Volume 89 fL (80-100); NEUTROPHILS ABSOLUTE AUTO 4.72 K/mm3 (1.96-9.15); NEUTROPHILS PERCENT AUTO 71 % (41-73); Platelet Count 353 K/mm3 (150-400); RDW Coefficient Variation 13.9 % (11.7-14.2); RDW Standard Deviation 45.3 fL (35.1-46.3); Red Blood Cell Count 3.33 M/mm3 (3.80-5.20); White Blood Cell Count 6.64 K/mm3 (4.00-11.30)
[2024-02-20] MEDS ORDERED: HYDROmorphone HCl 2 MG Tab PO PRN (08:50)
--- NOTE | 2024-02-20 13:52 | NUR ---
Pt. is siting up in a chair. Spouse is at bedside when they both welcome my visit. Pt. is pleasant, but verbalized the possibility of needing another surgery. Facilitated other updates. Family verbalized gratitude for the spiritual care check in, and welcmed this handbag framer to return.
[2024-02-20 15:35] VITALS: BP 134/70
[2024-02-20] MEDS ORDERED: Enoxaparin 40 MG/0.4 ML SYR SC SCH (17:00)
--- NOTE | 2024-02-20 18:15 | NUR ---
SHIFT SUMMARY PT A&OX4, VSS, AMB IND, TOLERATING PO, VOIDING, AND PAIN MANAGED PER EMAR. PT WORKED W/ OT, SEE THERAPY NOTE. NO OTHER ACUTE CHANGES THIS SHIFT. PT PLAN FOR I&D TOMORROW. CALL LIGHT WITHIN REACH AND PT ABLE TO MAKE NEEDS KNOWN.
--- NOTE | 2024-02-20 18:40 | NUR ---
WOUND CARE COMPLETED PER ORDER.
[2024-02-20 20:26] VITALS: BP 133/72
[2024-02-21] VITALS (13 sets, daily range): BP systolic 131–148; BP diastolic 63–82
--- NOTE | 2024-02-21 03:22 | NUR ---
SHIFT SUMMARY; PT ALERT ORIENTED X 4 ABLE TO VERBALIZE NEEDS AMBULATES IN ROOM AND TO COMMODE WITH SBA. SHE HAD A I&D DONE ON 02/18 TO THE LACERATION ON HER RT MID FOREARM WITH WOUND VAC PLACEMENT. WOUNF VAC IS DRAINING SMALL AMOUNT OF RED DRAINAGE. SLING ON WHEN GETTING OUT OF BED. SHE ALSO HAS A RT PROXIMAL HUMERUS FX. SHES NON WEIGHT BEARING TO HER RUE. SHE HAS BEEN NPO AFTER MIDNIGHT FOR ANOTHER I&D TO BE DONE TODAY. VSS ON RA. SHES RESTING IN BED AT THIS TIME. C/O PAIN TO AREA WHICH IS BEING MANAGED WITH DILAUDID AND TORADOL.
[2024-02-21 05:09] LABS: BASOPHILS ABSOLUTE AUTO 0.05 K/mm3 (0.00-0.23); BASOPHILS PERCENT AUTO 1 % (0-2); EOSINOPHILS ABSOLUTE AUTO 0.26 K/mm3 (0.00-0.68); EOSINOPHILS PERCENT AUTO 4 % (0-6); Hematocrit 28.8 % (33.0-51.0); Hemoglobin 9.3 g/dL (11.5-16.0); IMMATURE GRAN ABSOLUTE AUTO 0.02 K/mm3 (0.00-0.10); IMMATURE GRAN PERCENT AUTO 0 % (0-1); LYMPHOCYTES ABSOLUTE AUTO 1.38 K/mm3 (0.84-5.20); LYMPHOCYTES PERCENT AUTO 23 % (21-46); MONOCYTES PERCENT AUTO 8 % (4-13); Mean Corpuscular HGB 28.6 pg (26.0-34.0); Mean Corpuscular HGB Conc 32.3 g/dL (31.5-36.5); Mean Corpuscular Volume 89 fL (80-100); Mean Platelet Volume 8.7 fL (9.1-12.4); NEUTROPHILS ABSOLUTE AUTO 3.76 K/mm3 (1.96-9.15); NEUTROPHILS PERCENT AUTO 63 % (41-73); Platelet Count 341 K/mm3 (150-400); RDW Coefficient Variation 14.1 % (11.7-14.2); RDW Standard Deviation 45.9 fL (35.1-46.3); Red Blood Cell Count 3.25 M/mm3 (3.80-5.20); White Blood Cell Count 5.97 K/mm3 (4.00-11.30)
[2024-02-21 05:50] LABS: Bun/Creatinine Ratio 10.2 (12.0-20.0); Calcium, Blood 8.7 mg/dL (8.5-10.1); Creatinine, Blood 0.59 mg/dL (0.40-1.00); Potassium, Blood 3.9 mmol/L (3.5-5.5)
[2024-02-21] MEDS ORDERED: NS 500 ML IV SCH (12:55)
--- NOTE | 2024-02-21 12:57 | NUR ---
History, Chart, Medications and Allergies reviewed before start of procedure. Patient confirms NPO status and agrees with scheduled surgery.
--- NOTE | 2024-02-21 14:11 | NUR ---
REPORT GIVEN TO HUBER ALBRECHT RN IN DAY SURGERY.
[2024-02-21] MEDS ORDERED: FentaNYL Citrate 50 MCG/ML 2 ML Injection IV ONE ×2 (14:30→15:40)
[2024-02-21] MEDS ORDERED: FentaNYL Citrate 50 MCG/ML 2 ML Injection ONE ×2 (14:30→15:32)
[2024-02-21 14:55] LABS: Vancomycin, Trough 19.1 ug/mL (5.0-10.0)
[2024-02-21] MEDS ORDERED: Midazolam HCl 1MG / ML 2ML Vial ONE (15:31)
[2024-02-21] MEDS ORDERED: Midazolam HCl 1MG / ML 2ML Vial IV ONE (15:35)
[2024-02-21] MEDS ORDERED: propofoL 20 ML IV ONE ×2 (15:41→15:54)
[2024-02-21] MEDS ORDERED: Ondansetron HCl 2 MG / ML 2ML Vial ONE ×2 (15:54→16:25)
[2024-02-21] MEDS ORDERED: Dexamethasone Sod Phos 10 MG/ML 1ML VIAL ONE (15:54)
[2024-02-21] MEDS ORDERED: HYDROmorphone HCl/Pf 1MG SYR ONE (16:02)
[2024-02-21] MEDS ORDERED: SuccINYLCHOLINE Chloride 100 MG/5 ML 5MLSYR ONE (16:19)
[2024-02-21] MEDS ORDERED: Ketorolac Tromethamine 30mg Vial ONE (16:19)
--- NOTE | 2024-02-21 17:17 | NUR ---
PT ARRIVED TO THE FLOOR FROM OR AT APPROX 1700. PT A&OX4, VSS, TRANSFERRED FROM [facility] TO BED BY SLIDE SHEET, TOLERATING PO, VOIDING, AND DENIED PAIN. CALL LIGHT PLACED WITHIN REACH. WOUND VAC IN PLACE AND PATENT.
--- NOTE | 2024-02-21 18:12 | NUR ---
SHIFT SUMMARY PT HAD I&D W/ WOUND VAC TODAY. PAIN MANAGED PER EMAR. NO OTHER ACUTE CHANGES. CALL LIGHT WITHIN REACH AND PT ABLE TO MAKE NEEDS KNOWN.
--- NOTE | 2024-02-21 18:13 | NUR ---
WOUND MEASUREMENTS IN CHART.
[2024-02-22 03:28] VITALS: BP 129/72
--- NOTE | 2024-02-22 04:04 | NUR ---
SHIFT SUMMARY; PT ALERT ORIENTED X 4. GETS UP TO BATHROOM WITH SBA. VSS AT THIS TIME SATTING 99% ON RA. C/O RT ARM PAIN MEDICATED WITH DILAUDID AND TORADOL WITH GOOD PAIN RELIEF. HAD A I&D DONE YESTERDAY. WOUND VAC INTACT TO RT ELBOW WITH VERY LITTLE RED DRAINAGE. ALSO HAS A RT PROXIMAL HUMERUS FX. SHE WEARS A SLING WHEN GETTING OUT OF BED. HAS A HX OF TRIGEMINAL NEUALGIA WHICH CAUSES NUMBNESS TO HER FACE. REMAINS NON WEIGHT BEARING TO HER RUE. RESTING IN BED AT THIS TIME
[2024-02-22 05:50] LABS: BASOPHILS ABSOLUTE AUTO 0.05 K/mm3 (0.00-0.23); BASOPHILS PERCENT AUTO 1 % (0-2); EOSINOPHILS ABSOLUTE AUTO 0.13 K/mm3 (0.00-0.68); EOSINOPHILS PERCENT AUTO 2 % (0-6); Hemoglobin 9.6 g/dL (11.5-16.0); IMMATURE GRAN ABSOLUTE AUTO 0.05 K/mm3 (0.00-0.10); IMMATURE GRAN PERCENT AUTO 1 % (0-1); LYMPHOCYTES ABSOLUTE AUTO 1.29 K/mm3 (0.84-5.20); LYMPHOCYTES PERCENT AUTO 15 % (21-46); MONOCYTES ABSOLUTE AUTO 0.56 K/mm3 (0.16-1.47); MONOCYTES PERCENT AUTO 7 % (4-13); Mean Corpuscular HGB Conc 33.1 g/dL (31.5-36.5); Mean Corpuscular Volume 88 fL (80-100); NEUTROPHILS ABSOLUTE AUTO 6.54 K/mm3 (1.96-9.15); NEUTROPHILS PERCENT AUTO 76 % (41-73); RDW Standard Deviation 44.7 fL (35.1-46.3); Red Blood Cell Count 3.31 M/mm3 (3.80-5.20); White Blood Cell Count 8.62 K/mm3 (4.00-11.30)
[2024-02-22 06:08] LABS: Platelet Count 430 K/mm3 (150-400)
[2024-02-22 07:15] VITALS: BP 128/78
[2024-02-22 14:43] LABS: Vancomycin, Trough 21.2 ug/mL (5.0-10.0)
--- NOTE | 2024-02-22 15:16 | NUR ---
PT/OT WORKED WITH PATIENT, AT BEDSIDE, FRIENDS AND FAMILY VISITING THROUGH OUT THE DAY, PATIENT ALERT AND OREINTED X4, EASILY MAKES NEEDS KNOWN, ICE PACK TO RGHT ARM PIT, CALL LIGHT WITH IN REACH
[2024-02-22] MEDS ORDERED: OXcarbazepine 150 MG Tab PO SCH (18:00)
[2024-02-22] MEDS ORDERED: LamoTRIgine 100 MG Tab PO SCH (18:00)
--- NOTE | 2024-02-22 18:01 | NUR ---
ALERT AND ORIENTED TO ALL, PLEASANT TO CARE, AND FRIENDS VISITED THROUGH OUT THE DAY, ICE AND AIN MEDICATIONS THROUGH OUT THE DAY, VANCO DOSE HELD FOR TODAYS HIGH TROUGH RESULT, NO ACUTE CHANGES. CALL LIGHT WITH IN REACH, WILL RELA TO PM RN
[2024-02-22 20:13] VITALS: BP 129/63
[2024-02-22] MEDS ORDERED: Vancomycin HCL 1,250 MG in NS 250 ML IV SCH (21:00)
[2024-02-23 03:17] VITALS: BP 146/74
[2024-02-23 07:28] VITALS: BP 144/78
--- NOTE | 2024-02-23 07:56 | NUR ---
SHIFT SUMMARY PT HAS BEEN PLEASANT AND COOPERATIVE WITH CARE DURING THIS SHIFT. ABLE TO CONTROL PAIN FROM 8/10 TO 5. PT ABLE TO MOVE ABOUT WITH MINIMAL DIFFICULLTY. WOUND VAC DRAINING WELL.
[2024-02-23 15:07] VITALS: BP 126/70
--- NOTE | 2024-02-23 18:26 | NUR ---
NO ACUTE CHANGES, WAIITNG FOR HME WOUND VAC FOR DISCAHRGE, ALERT AND ORIENTED X4, PLEASANT TO CARE, MEDICATED FOR PAIN FOR TRIGIMENALMYALGI AND RIGHT ELBOW PAIN, INDEPEDANT IN ROOM, DR ZENG AND DR DAVIES ROUNED ON PATIENT, WOUND VAC TO POSSIBLY BE HERE TOMORROW, DRESSING CHANGE TO BE DONE THEN, CALL LIGHT WITH IN REACH, WILL RELAY TO PM RN
[2024-02-23 19:37] VITALS: BP 132/66
[2024-02-24 03:55] VITALS: BP 146/77
[2024-02-24 07:29] VITALS: BP 143/73
--- NOTE | 2024-02-24 07:46 | NUR ---
SHIFT SUMMARY PT HAS HAD PAIN MANAGED WELL THIS SHIFT. OVERALL PAIN LEVEL DECREASED FROM PREVIOUS SHIFT. NO ACUTE CHANGES FROM PREVIOUS SHIFT. PT READY TO GO HOME. SHE HAS BEEN PLEASANT AND COOPERATIVE WITH HER CARE.
[2024-02-24] MEDS ORDERED: VISBIOME 112.51 EACH PO (10:41)
[2024-02-24] MEDS ORDERED: Acetaminophen325 M1 PO (10:41)
[2024-02-24] MEDS ORDERED: AMOCLA875 PO (10:42)
--- NOTE | 2024-02-24 13:12 | NUR ---
DISCAHRGED HOME 1230, INSTRUCTIONS GIVEN TO PATIENT AND , BOTH STATED UNDERSTANDING OF INSTRUCTIONS, MEDICATIONS, WOUND VAC, AND FOLLOW UP NEEDS. BOTH PATIENT AND DENIED FURTHER QUESTIONS. PORTABLE WOUND VAC RECEIVED, NEW DRESSING APPLIED, AND PATIENT EDUCATED THROUGH THE WHOLE PROCESS AND THE USE OF THE PORTABLE WOUNDVAC. PATIETN AND UNDERSTAND HOME HEALTH WILL BE CONTACTING THEM AND DRESSING CHANGES ARE SUNDAY, SUNDAY, AND SUNDAY. PLEASANT TO CARE
== END 2024-02-24 12:45 | disposition home health service (06) | DRG 603 ==
LOC: ER 12:26 → MEDS 16:26
PROVIDERS: Emergency Medicine; Orthopaedic Surgery; ADMIT Family Medicine
PROC: 0H9DXZZ Drainage of Right Lower Arm Skin, External Approach (ICD-10-PCS; 2024-02-17)
PROC: 0HDDXZZ Extraction of Right Lower Arm Skin, External Approach (ICD-10-PCS; principal; 2024-02-19 12:30)
PROC: 0HDDXZZ Extraction of Right Lower Arm Skin, External Approach (ICD-10-PCS; 2024-02-21)
DX: L03.113 Cellulitis of right upper limb (principal); S42.201A Unspecified fracture of upper end of right humerus, initial encounter for closed fracture; E87.1 Hypo-osmolality and hyponatremia; D64.9 Anemia, unspecified; I10 Essential (primary) hypertension; E03.9 Hypothyroidism, unspecified; G50.0 Trigeminal neuralgia; S51.011A Laceration without foreign body of right elbow, initial encounter; S50.811A Abrasion of right forearm, initial encounter; W01.0XXA Fall on same level from slipping, tripping and stumbling without subsequent striking against object, initial encounter; Z88.2 Allergy status to sulfonamides; Z79.890 Hormone replacement therapy; Z98.1 Arthrodesis status; Z85.841 Personal history of malignant neoplasm of brain; Z88.5 Allergy status to narcotic agent
CPT/HCPCS: 36415; 73201; 80048; 80053; 80202; 85025; 85651; 86140; 87070; 87075; 87205; 88305; 94762; 96365-59; 96375-59; 97110; 97165; 97530; 97535; 99284-25; A9270; J0330; J0690; J1100; J1170; J1650; J1885; J2250; J2405; J2704; J3010; J3370; J3480; J7030; J7040; J7050; J7120; Q9967

== ENCOUNTER 2024-03-03 03:03 | Day surgery (SDC) | payer MEDICARE, OTHER ==
[~2024-03-03 03:03] MED LIST changes: +AMLO5 PO; +AMOCLA875 PO; +Acetaminophen325 M1 PO; +Dilaudid 2 mg Ta2 MG PO; +LOSA50 PO; +METO25ER PO; +SODCHL1 PO; +VISBIOME 112.51 EACH PO
== END 2024-03-03 23:00 | disposition home or self-care (01) ==
LOC: WOUND 03:03
DX: T81.31XA Disruption of external operation (surgical) wound, not elsewhere classified, initial encounter (principal); I10 Essential (primary) hypertension; E03.9 Hypothyroidism, unspecified; E78.5 Hyperlipidemia, unspecified; M19.90 Unspecified osteoarthritis, unspecified site; Z88.4 Allergy status to anesthetic agent; Z88.2 Allergy status to sulfonamides; Z91.048 Other nonmedicinal substance allergy status; Z90.49 Acquired absence of other specified parts of digestive tract; Z90.710 Acquired absence of both cervix and uterus
CPT/HCPCS: G0463

== ENCOUNTER 2024-03-12 03:35 | Day surgery (SDC) | payer MEDICARE, OTHER | END 2024-03-12 23:34 | disposition home or self-care (01) | LOC: WOUND 03:35 | DX: S51.011A Laceration without foreign body of right elbow, initial encounter (principal); S42.301A Unspecified fracture of shaft of humerus, right arm, initial encounter for closed fracture; W19.XXXA Unspecified fall, initial encounter | CPT/HCPCS: A6213; G0463 ==

== ENCOUNTER 2024-03-21 04:29 | Day surgery (SDC) | payer MEDICARE, OTHER | END 2024-03-22 02:56 | disposition home or self-care (01) | LOC: WOUND | DX: S51.001D Unspecified open wound of right elbow, subsequent encounter (principal); S42.301D Unspecified fracture of shaft of humerus, right arm, subsequent encounter for fracture with routine healing; X58.XXXD Exposure to other specified factors, subsequent encounter | CPT/HCPCS: A6213; G0463 ==

== ENCOUNTER 2024-03-26 05:53 | Day surgery (SDC) | payer MEDICARE, OTHER ==
[2024-03-26] MEDS ORDERED: Silver Nitr/Potassium Nitrate 1 EA APPL ONE (08:07)
== END 2024-03-26 23:00 | disposition home or self-care (01) ==
LOC: WOUND 05:53
DX: T81.31XA Disruption of external operation (surgical) wound, not elsewhere classified, initial encounter (principal)
CPT/HCPCS: A6196; A6213; A9270

== ENCOUNTER 2024-04-09 00:55 | Day surgery (SDC) | payer MEDICARE, OTHER ==
[2024-04-09] MEDS ORDERED: Lidocaine HCl 4% Cream 5 GM ONE (09:40)
[2024-04-09] MEDS ORDERED: Silver Nitr/Potassium Nitrate 1 EA APPL ONE (09:55)
== END 2024-04-09 22:50 | disposition home or self-care (01) ==
LOC: WOUND 00:55
DX: L98.492 Non-pressure chronic ulcer of skin of other sites with fat layer exposed (principal); S51.011A Laceration without foreign body of right elbow, initial encounter; S42.301A Unspecified fracture of shaft of humerus, right arm, initial encounter for closed fracture; W19.XXXA Unspecified fall, initial encounter
CPT/HCPCS: A6213; A9270

== ENCOUNTER 2024-04-16 02:58 | Day surgery (SDC) | payer MEDICARE, OTHER | END 2024-04-16 23:00 | disposition home or self-care (01) | LOC: WOUND 02:58 | DX: T81.31XD Disruption of external operation (surgical) wound, not elsewhere classified, subsequent encounter (principal) | CPT/HCPCS: A6213; G0463 ==

== ENCOUNTER 2024-04-23 03:49 | Day surgery (SDC) | payer MEDICARE, OTHER | END 2024-04-23 23:59 | disposition home or self-care (01) | LOC: WOUND 03:49 | DX: S51.011A Laceration without foreign body of right elbow, initial encounter (principal); S42.301A Unspecified fracture of shaft of humerus, right arm, initial encounter for closed fracture; W19.XXXA Unspecified fall, initial encounter; L98.492 Non-pressure chronic ulcer of skin of other sites with fat layer exposed | CPT/HCPCS: G0463 ==

== ENCOUNTER → 2024-08-26 | Outpatient (CLI) | payer MEDICARE, OTHER ==
[2024-08-26 07:48] LABS: Source, Urine Clean Catch
[2024-08-26 10:36] LABS: Appearance, Urine Clear (Clear); Bilirubin, Urine Neg (Neg); Blood, Urine Neg (Neg); Color, Urine Yellow (P-Yellow); Glucose Qualitative, Urine Neg (Neg); Ketones, Urine Neg (Neg); Leukocyte Esterase, Urine Neg (Neg); Nitrite, Urine Neg (Neg); Protein, Urine Neg (Neg); Urobilinogen, Urine NORM (Normal)
== END | disposition home or self-care (01) ==
LOC: LAB 07:47 → LAB SHORT 07:47 → EDSTATUS 08-20 17:00 → LAB FUT 08-20 17:00
PROVIDERS: Physician Assistant
DX: N39.0 Urinary tract infection, site not specified (principal)
CPT/HCPCS: 81003; 87077; 87086; 87186

== ENCOUNTER → 2025-02-01 | Outpatient (CLI) | payer MEDICARE, OTHER ==
[2025-02-02 16:11] LABS: Stool Occult Bld Immuno 1 Negative (NEGATIVE); Stool Occult Bld Immuno 2 Negative (NEGATIVE); Stool Occult Bld Immuno 3 Negative (NEGATIVE)
== END ==
LOC: LAB SHORT 07:00 → LAB 07:00
PROVIDERS: Nurse Practitioner
DX: D64.9 Anemia, unspecified (principal)
CPT/HCPCS: 82274